=== PATIENT | male | born 1985 | race Caucasian/White ===

== ENCOUNTER 2023-12-19 08:56 | Day surgery (SDC) | payer BC ==
[~2023-12-19 08:56] MED LIST: propofoL 0 ML ONE
[2023-12-19] MEDS ORDERED: Lidocaine 2% 5 ML SDV ONE (09:04)
[2023-12-19] MEDS ORDERED: propofoL 50 ML ONE (09:05)
[2023-12-19] MEDS: Lactated Ringers 1,000 ML IV SCH (09:23)
[2023-12-19] MEDS ORDERED: Magnesium Sulfate (4.06 MEQ/ML) 5 GM/10 ML SDV ONE (09:28)
[2023-12-19] MEDS ORDERED: Ketamine HCL/NACL, ISO-OSM 50 MG/5 ML Syringe ONE (09:28)
[2023-12-19] MEDS ORDERED: Lactated Ringers 1,000 ML IV SCH (11:00)
== END 2023-12-19 11:35 | disposition home or self-care (01) ==
LOC: MW.SDS 08:56
PROVIDERS: ATTEND Surgery
DX: D12.8 Benign neoplasm of rectum (principal); F17.290 Nicotine dependence, other tobacco product, uncomplicated; Z98.890 Other specified postprocedural states
CPT/HCPCS: 45380; J2704; J3475; J7120; 00811; J3490